=== PATIENT | male | born 1945 | race Caucasian/White ===

== ENCOUNTER → 2018-09-23 12:04 | Outpatient (CLI) | payer OTHER, SELFPAY ==
--- NOTE | 2018-09-23 | DI.US.S_ITS ---
PROCEDURE: US ABD AORTA ANEURYSM SCREEN INDICATIONS: AAA SCREEN TECHNIQUE: Real time scanning was performed of the aorta and iliac arteries, with image documentation. COMPARISON: None. FINDINGS: Aorta: Proximal aortic diameter measures 2.4 cm. Mid-aorta measures 1.8 cm. Distal aortic diameter is 1.9 cm. Iliac arteries: Right common iliac artery measures 1.0 cm. Left common iliac artery measures 1.1 cm. IMPRESSION: No evidence of abdominal aortic aneurysm. Dictated by: Julius Casanova M.D. on 09/23/2018 at 16:42 Approved by: Julius Casnaova M.D. on 09/23/2018 at 16:43
== END ==
PROVIDERS: PCP Family Medicine; Visit Provider Family Medicine
DX: Z13.6 Encounter for screening for cardiovascular disorders (principal)
CPT/HCPCS: 76706

== ENCOUNTER 2019-08-20 08:39 | Emergency (ER) | payer OTHER, SELFPAY ==
[2019-08-20 08:45] VITALS: BP 129/80; PULSE 78; RESP 14; TEMP 36.5; O2SAT 100; BMI 23.1
--- NOTE | 2019-08-20 09:01 | DI.RAD.S_ITS ---
PROCEDURE: XR CHEST 2V INDICATIONS: SOB TECHNIQUE: 2 views of the chest were acquired. COMPARISON: None. FINDINGS: Surgical changes and devices: None. Lungs and pleura: There is a 1.2 cm nodular density in the left lung base. No focal consolidation or pleural effusion. No pneumothorax. Mediastinum: Mediastinal contours are normal. Heart size is normal. Bones and chest wall: No suspicious bony abnormalities. Soft tissues appear unremarkable. IMPRESSION: 1. No acute cardiopulmonary disease. 2. A 1.2 cm nodular density in the left lower lobe. Recommend followup chest x-ray with nipple markers. If persists, a nonurgent chest CT is recommended for further evaluation. Dictated by: Michelle Ho M.D. on 08/20/2019 at 9:12 Approved by: Michelle Ho M.D. on 08/20/2019 at 9:16
[2019-08-20 09:10] VITALS: BP 122/67; PULSE 74; RESP 18; O2SAT 99
[2019-08-20 09:43] LABS: Add Manual Diff / Slide Review NO; Basophils Absolute Auto 100 /uL (0-100); Basophils Percent Auto 0.8 % (0-2); Eosinophils Absolute Auto 100 /uL (0-450); Eosinophils Percent Auto 1.4 % (2-4); Hematocrit 42.1 % (41-53); Hemoglobin 14.4 g/dL (13.5-17.5); Lymphocytes Absolute Auto 1400 /uL (1100-4500); Lymphocytes Percent Auto 14.8 % (25-40); Mean Corpuscular HGB Conc 34.1 % (30-36); Mean Corpuscular Hemoglobin 30.1 PG (26-34); Mean Corpuscular Volume 88.5 fL (80-100); Monocytes Absolute Auto 700 /uL (0-900); Monocytes Percent Auto 8.1 % (3-14); Neutrophils Absolute Auto 6900 /uL (1500-7000); Neutrophils Percent Auto 74.9 % (50-75); Platelet Count 246 X10^3/uL (150-400); Red Blood Cell Count 4.76 X10^6/uL (4.5-5.9); Red Cell Distribution Width 12.5 % (11.6-14.8); White Blood Cell Count 9.2 X10^3/uL (4.5-11.0)
[2019-08-20 09:49] LABS: D Dimer 301 ng/mL (<230)
[2019-08-20 09:53] LABS: BUN Creatinine Ratio 23.8 (6-22); Blood Urea Nitrogen 19 mg/dL (9-20); Calcium 9.3 mg/dL (8.4-10.2); Carbon Dioxide 26 mmol/L (22-32); Chloride 106 mmol/L (98-107); Creatine Kinase 440 U/L (55-170); Estimated Glomerular Filt Rate > 60.0 mL/min (>60); Glucose 101 mg/dL (80-110); HEMOLYSIS < 15 (0-50); Potassium 3.7 mmol/L (3.4-5.1); Sodium 140 mmol/L (137-145)
[2019-08-20 10:01] LABS: B Type Natriuretic Peptide < 100 (<100)
[2019-08-20 10:02] LABS: Lactate (Lactic Acid) 1.3 mmol/L (0.7-2.1)
[2019-08-20 10:05] LABS: Troponin I < 0.012 ng/mL (0.01-0.034)
[2019-08-20 10:07] LABS: CKMB % Relative Index 0.4 % (1.5-5.0); Creatine Kinase MB 1.76 ng/mL (<2.37)
[2019-08-20 10:15] LABS: Procalcitonin < 0.05 ng/mL (<0.5)
[2019-08-20 10:33] LABS: Ur Creatinine Normal (Normal); Ur Specific Gravity Normal (Normal); Urine pH Normal (Normal)
[2019-08-20 10:34] LABS: UR Morphine/Opiate cutoff 300 Negative (Negative); Urine Amphetamines Negative (Negative); Urine Barbiturates Negative (Negative); Urine Benzodiazepines Negative (Negative); Urine Cocaine Negative (Negative); Urine MDMA Negative (Negative); Urine Methadone Negative (Negative); Urine Methamphetamines Negative (Negative); Urine Oxycodone Negative (Negative); Urine Phencyclidine Negative (Negative); Urine Tetrahydrocannabinol Positive (Negative); Urine Tricyclic Antidepressant Negative (Negative)
[2019-08-20 10:40] VITALS: BP 119/68; PULSE 62; RESP 13; O2SAT 86
[2019-08-20 10:52] VITALS: O2SAT 98
[2019-08-20 11:01] VITALS: BP 115/63; PULSE 59; RESP 22; O2SAT 95
[2019-08-20 12:00] VITALS: BP 123/71; PULSE 61; RESP 16; O2SAT 98
[2019-08-20 12:29] LABS: Bacteria Urine None Seen; RBC Urine None Seen (0-5/HPF)
[2019-08-20 12:56] LABS: Culture Indicated Urine Specimen Cultured; Mucus Urine 1+ (Negative); Squamous Epithelial Cell Urine None Seen (0-5/HPF); WBC Urine 1-5/HPF (0-5/HPF)
--- NOTE | 2019-08-20 17:33 | ED_ITS ---
HPI - Anxiety General Chief Complaint: Anxiety Stated Complaint: withdrawls off and on having hot flashes cant eat Time Seen by Provider: 08/20/19 08:47 Source: patient and family Mode of arrival: Ambulatory Limitations: no limitations History of Present Illness HPI narrative: 74-year-old male nonsmoker presents with his significant other in the chief complaint of anxiety gradually increasing over the past few weeks. The patient has suffered from anxiety chronically, but relatively recently tapered off his medications over an 8 week period. Today he feels anxious and jittery and has been feeling a bit SOB for weeks to months. He missed his appointment with his PCP and came here. MD complaint: anxiety Onset (ago): week(s) Symptoms: palpitations and perioral numbness/tingling Severity: mild Quality: constant Place: home History of similar episodes: No Provoking factors: medication change Relieving factors: nothing Exacerbating factors: nothing Associated symptoms: shortness of breath and palpitations Related Data Allergies Allergy/AdvReac Type Severity Reaction Status Date / Time tetracycline Allergy Verified 08/20/19 08:57 Review of Systems Constitutional Constitutional: Denies chills, Denies fatigue, Denies fever(s), Denies frequent falls, Denies lethargy and Denies weakness Eyes Eyes: Denies change in vision, Denies eye discharge, Denies irritation and Denies loss of vision ENT Ears, Nose, Mouth, and Throat: Denies change in voice, Denies dizziness, Denies neck pain, Denies sore throat and Denies throat swelling Cardiovascular Cardiovascular: Denies chest pain, Denies irregular heart rhythm, Denies lightheadedness, Reports palpitations, Reports dyspnea, Denies dyspnea on exertion and Denies orthopnea Respiratory Respiratory: Denies cough, Reports dyspnea, Denies dyspnea on exertion and Denies wheezing Gastrointestinal Gastrointestinal: Denies abdominal pain, Denies change in bowel habits, Denies diarrhea, Denies nausea and Denies vomiting Genitourinary Genitourinary: Denies hematuria, Denies flank pain, Denies urinary incontinence and Denies urinary urgency Musculoskeletal Musculoskeletal: Denies back pain, Denies muscle weakness, Denies neck pain, Denies numbness and Denies tingling Integumentary/Breasts Skin/Breast: Denies pruritus, Denies erythema, Denies rash and Denies wounds Neurologic Neurologic: Denies behavioral changes, Denies confusion, Denies dizziness, Denies frequent falls, Denies loss of vision, Denies numbness, Denies tingling and Denies weakness Psychiatric Psychiatric: Reports anxiety, Denies behavioral changes, Denies confusion, Denies depression, Denies homicidal ideation and Denies suicidal ideation Endocrine Endocrine: Denies fatigue, Denies flushing and Reports palpitations Hematologic/Lymphatic Hematologic/Lymphatic: Denies easy bruising Allergic/Immunologic Allergic/Immunologic: Denies urticaria, Denies throat swelling and Denies wheezing Exam Narrative Exam Narrative: GENERAL: [74] year old patient appears stated age. Well- nourished, well-developed patient, in mild distress. HEAD: Atraumatic. Normocephalic. EYES: Pupils equal round and reactive. Extraocular motions intact. No scleral icterus. No injection or drainage. ENT: Nose without bleeding, purulent drainage. Throat without erythema, tonsillar hypertrophy or exudate. Airway patent. NECK: Trachea midline. Non tender CARDIOVASCULAR: Regular rate and rhythm without murmurs, gallops, or rubs. RESPIRATORY: Clear to auscultation. Breath sounds equal bilaterally. No wheezes, rales, or rhonchi. GASTROINTESTINAL: Abdomen soft, non-tender, nondistended. EXTREMITIES: No edema or joint tenderness. BACK: Nontender without deformity or crepitance. No flank tenderness. NEURO: AOx3. SKIN: No rash or erythema of visible areas Initial Vital Signs Initial Vital Signs: Vital Signs Temperature 97.7 F 08/20/19 08:45 Pulse Rate 78 08/20/19 08:45 Respiratory Rate 14 08/20/19 08:45 Blood Pressure 129/80 08/20/19 08:45 Pulse Oximetry 100 08/20/19 08:45 Course Orders Ordered: ED Orders 08/20/19 09:00 Consult to Respiratory Therapy Evaluate & Treat EKG-12 Lead Stat 08/20/19 09:01 XR chest 2V Stat 08/20/19 09:30 B Type Natriuretic Peptide Stat Basic Metabolic Panel Stat Complete Blood Count AUTO DIFF Stat D Dimer Stat Magnesium Stat Procalcitonin Stat Troponin & CK Cardiac Panel Stat 08/20/19 09:40 Lactate (Lactic Acid) Stat 08/20/19 10:10 Urine Culture Stat Urine Drug Screen, Rapid Stat Urine Microscopic Stat Consultations Consultation #1: call to PCP whom will follow as an outpatient Vital Signs Vital signs: Vital Signs - 8 hr 08/20/19 10:40 08/20/19 10:52 08/20/19 11:01 Pulse Rate 62 59 L Respiratory Rate 13 22 Blood Pressure [Right Arm] 119/68 115/63 Pulse Oximetry 86 L 98 95 08/20/19 12:00 Pulse Rate 61 Respiratory Rate 16 Blood Pressure [Right Arm] 123/71 Pulse Oximetry 98 MDM - Anxiety Lab Data Result diagrams: 08/20/19 09:30 08/20/19 09:30 Labs: Lab Results 08/20/19 08/20/19 08/20/19 Range/Units 09:30 09:30 09:30 WBC 9.2 (4.5-11.0) X10^3/uL RBC 4.76 (4.5-5.9) X10^6/uL Hgb 14.4 (13.5-17.5) g/dL Hct 42.1 (41-53) % MCV 88.5 (80-100) fL MCH 30.1 (26-34) PG MCHC 34.1 (30-36) % RDW 12.5 (11.6-14.8) % Plt Count 246 (150-400) X10^3/uL Neut % (Auto) 74.9 (50-75) % Lymph % (Auto) 14.8 L (25-40) % [place] % (Auto) 8.1 (3-14) % Eos % (Auto) 1.4 L (2-4) % Baso % (Auto) 0.8 (0-2) % Neut # (Auto) 6900 (8896-5793) /uL Lymph # (Auto) 1400 (3543-5696) /uL [place] # (Auto) 700 (0-900) /uL Eos # (Auto) 100 (0-450) /uL Baso # (Auto) 100 (0-100) /uL D-Dimer 301 H (<230) ng/mL Sodium 140 (137-145) mmol/L Potassium 3.7 (3.4-5.1) mmol/L Chloride 106 (98-107) mmol/L Carbon Dioxide 26 (22-32) mmol/L BUN 19 (9-20) mg/dL Creatinine 0.80 (0.66-1.25) mg/dL Estimated GFR > 60.0 (>60) mL/min BUN/Creatinine Ratio 23.8 H (6-22) Glucose 101 (80-110) mg/dL Lactate (0.7-2.1) mmol/L Calcium 9.3 (8.4-10.2) mg/dL Magnesium 2.0 (1.6-2.3) mg/dL Total Creatine Kinase 440 H (55-170) U/L CK-MB (CK-2) 1.76 (<2.37) ng/mL CK-MB (CK-2) Rel Index 0.4 L (1.5-5.0) % Troponin I < 0.012 (0.01-0.034) ng/mL B-Natriuretic Peptide < 100 (<100) Procalcitonin (<0.5) ng/mL Urine RBC (0-5/HPF) Urine WBC (0-5/HPF) Ur Squamous Epith Cells (0-5/HPF) Urine Bacteria (None) Urine Mucus (Negative) Ur Culture Indicated? U Morph 300 ng/mL cutoff (Negative) Ur Oxycodone Screen (Negative) Urine Methadone Screen (Negative) Ur Barbiturates Screen (Negative) U Tricyclic Antidepress (Negative) Ur Phencyclidine Scrn (Negative) Ur Amphetamines Screen (Negative) U Methamphetamines Scrn (Negative) Ur MDMA Scrn (Ecstasy) (Negative) U Benzodiazepines Scrn (Negative) Urine Cocaine Screen (Negative) U Marijuana (THC) Screen (Negative) 08/20/19 08/20/19 08/20/19 Range/Units 09:30 09:40 10:10 WBC (4.5-11.0) X10^3/uL RBC (4.5-5.9) X10^6/uL Hgb (13.5-17.5) g/dL Hct (41-53) % MCV (80-100) fL MCH (26-34) PG MCHC (30-36) % RDW (11.6-14.8) % Plt Count (150-400) X10^3/uL Neut % (Auto) (50-75) % Lymph % (Auto) (25-40) % [place] % (Auto) (3-14) % Eos % (Auto) (2-4) % Baso % (Auto) (0-2) % Neut # (Auto) (2240-8704) /uL Lymph # (Auto) (1751-7087) /uL [place] # (Auto) (0-900) /uL Eos # (Auto) (0-450) /uL Baso # (Auto) (0-100) /uL D-Dimer (<230) ng/mL Sodium (137-145) mmol/L Potassium (3.4-5.1) mmol/L Chloride (98-107) mmol/L Carbon Dioxide (22-32) mmol/L BUN (9-20) mg/dL Creatinine (0.66-1.25) mg/dL Estimated GFR (>60) mL/min BUN/Creatinine Ratio (6-22) Glucose (80-110) mg/dL Lactate 1.3 (0.7-2.1) mmol/L Calcium (8.4-10.2) mg/dL Magnesium (1.6-2.3) mg/dL Total Creatine Kinase (55-170) U/L CK-MB (CK-2) (<2.37) ng/mL CK-MB (CK-2) Rel Index (1.5-5.0) % Troponin I (0.01-0.034) ng/mL B-Natriuretic Peptide (<100) Procalcitonin < 0.05 (<0.5) ng/mL Urine RBC (0-5/HPF) Urine WBC (0-5/HPF) Ur Squamous Epith Cells (0-5/HPF) Urine Bacteria (None) Urine Mucus (Negative) Ur Culture Indicated? U Morph 300 ng/mL cutoff Negative (Negative) Ur Oxycodone Screen Negative (Negative) Urine Methadone Screen Negative (Negative) Ur Barbiturates Screen Negative (Negative) U Tricyclic Antidepress Negative (Negative) Ur Phencyclidine Scrn Negative (Negative) Ur Amphetamines Screen Negative (Negative) U Methamphetamines Scrn Negative (Negative) Ur MDMA Scrn (Ecstasy) Negative (Negative) U Benzodiazepines Scrn Negative (Negative) Urine Cocaine Screen Negative (Negative) U Marijuana (THC) Screen Positive H (Negative) 08/20/19 Range/Units 10:10 WBC (4.5-11.0) X10^3/uL RBC (4.5-5.9) X10^6/uL Hgb (13.5-17.5) g/dL Hct (41-53) % MCV (80-100) fL MCH (26-34) PG MCHC (30-36) % RDW (11.6-14.8) % Plt Count (150-400) X10^3/uL Neut % (Auto) (50-75) % Lymph % (Auto) (25-40) % [place] % (Auto) (3-14) % Eos % (Auto) (2-4) % Baso % (Auto) (0-2) % Neut # (Auto) (6789-7694) /uL Lymph # (Auto) (3799-5917) /uL [place] # (Auto) (0-900) /uL Eos # (Auto) (0-450) /uL Baso # (Auto) (0-100) /uL D-Dimer (<230) ng/mL Sodium (137-145) mmol/L Potassium (3.4-5.1) mmol/L Chloride (98-107) mmol/L Carbon Dioxide (22-32) mmol/L BUN (9-20) mg/dL Creatinine (0.66-1.25) mg/dL Estimated GFR (>60) mL/min BUN/Creatinine Ratio (6-22) Glucose (80-110) mg/dL Lactate (0.7-2.1) mmol/L Calcium (8.4-10.2) mg/dL Magnesium (1.6-2.3) mg/dL Total Creatine Kinase (55-170) U/L CK-MB (CK-2) (<2.37) ng/mL CK-MB (CK-2) Rel Index (1.5-5.0) % Troponin I (0.01-0.034) ng/mL B-Natriuretic Peptide (<100) Procalcitonin (<0.5) ng/mL Urine RBC None seen (0-5/HPF) Urine WBC 1-5/hpf (0-5/HPF) Ur Squamous Epith Cells None seen (0-5/HPF) Urine Bacteria None seen (None) Urine Mucus 1+ H (Negative) Ur Culture Indicated? Specimen cultured U Morph 300 ng/mL cutoff (Negative) Ur Oxycodone Screen (Negative) Urine Methadone Screen (Negative) Ur Barbiturates Screen (Negative) U Tricyclic Antidepress (Negative) Ur Phencyclidine Scrn (Negative) Ur Amphetamines Screen (Negative) U Methamphetamines Scrn (Negative) Ur MDMA Scrn (Ecstasy) (Negative) U Benzodiazepines Scrn (Negative) Urine Cocaine Screen (Negative) U Marijuana (THC) Screen (Negative) Urine Dip Bedside Urine Glucose Negative Bedside Urine Bilirubin + 1 Bedside Urine Ketone ++ 40 Urine Specific [place] 1.015 Bedside Urine Occult Blood - Negative Bedside Urine pH 7.5 Bedside Urine Protein +/- 15 Bedside Urine Urobilinogen +/- 1mg Bedside Urine Nitrite - Negative Bedside Urine Leukocytes +/- 15 Esterase Discharge Plan Departure Patient Disposition: Home Clinical Impression: Acute anxiety Discharge Date/Time: 08/20/19 12:16 Instructions: Anxiety Disorders Activity Restrictions/Additional Instructions: *You have been diagnosed with [anxiety, unlikely withdrawals from benzodiazepines] *What to do: *Take medications as directed *Follow up with your primary care provider in 2-3 days, call for an appointment. Let them know you were seen in the Emergency Department and that we ask that you be seen in follow up *Return to ER if you should have any new, worsening or concerning symptoms Referrals: Pebbles Foy MD [Physician] -
== END 2019-08-20 12:16 | disposition home or self-care (01) ==
PROVIDERS: Emergency Provider Emergency Medicine
DX: F41.9 Anxiety disorder, unspecified (principal)
CPT/HCPCS: 36415; 71046; 80048; 80305; 81003; 81015; 82550; 82553; 83605; 83735; 83880; 84145; 84484; 85025; 85379; 87086; 93005; 99283; 99285

== ENCOUNTER → 2019-08-23 09:25 | Outpatient (CLI) | payer OTHER, SELFPAY ==
--- NOTE | 2019-08-23 | DI.RAD.S_ITS ---
PROCEDURE: XR CHEST 2V INDICATIONS: LUNG NODULE TECHNIQUE: 2 views of the chest were acquired. COMPARISON: [facility], CR, XR CHEST 2V, 08/20/2019, 9:00. FINDINGS: Surgical changes and devices: None. Lungs and pleura: The nodular density persists and projects just inferior to the nipple marker. No pleural effusions or pneumothorax. Mediastinum: Mediastinal contours are normal. Heart size is normal. Bones and chest wall: No suspicious bony abnormalities. Soft tissues appear unremarkable. IMPRESSION: 1. No acute cardiopulmonary disease. 2. The nodular density in the left lower lung zone persists and projects just inferior to the nipple marker. Cannot rule out a pulmonary nodule. Chest CT is recommended for followup. Dictated by: Michelle Ho M.D. on 08/23/2019 at 11:01 Approved by: Michelle Ho M.D. on 08/23/2019 at 11:04
== END ==
PROVIDERS: PCP Student in an Organized Health Care Education/Training Program; Visit Provider Student in an Organized Health Care Education/Training Program
DX: R91.1 Solitary pulmonary nodule (principal)
CPT/HCPCS: 71046

== ENCOUNTER → 2019-08-23 15:48 | Outpatient (CLI) | payer OTHER, SELFPAY ==
--- NOTE | 2019-08-23 | DI.CT.S_ITS ---
PROCEDURE: CT ANGIO CHEST PE PROTOCOL INDICATIONS: Shortness of breath, Elevated D-dimer TECHNIQUE: After the administration of intravenous contrast, 2 mm thick sections acquired from the pulmonary apices to the posterior costophrenic angles. 3-dimensional maximum intensity projection (MIP) coronal and sagittal reformats were then acquired through the thorax. For radiation dose reduction, the following was used: automated exposure control, adjustment of mA and/or kV according to patient size. COMPARISON: [facility], CR, XR CHEST 2V, 08/23/2019, 9:26. FINDINGS: Image quality: Excellent. Pulmonary arteries: Pulmonary arteries are normal in size, and demonstrate no intraluminal filling defects to suggest central pulmonary embolism. Lungs and pleura: There is a 1 cm nodule in the right middle lobe (series 5 image 233). The nodular density in the left lower lung zone seen on the chest x-ray is not visualized, probably caused by an artifact such as an rib end. No pleural effusions or pneumothorax. Central and peripheral airways are patent. Mediastinum: Heart size is normal, without pericardial effusion. No mediastinal or hilar adenopathy. Thoracic aorta is normal in caliber and enhancement. Esophagus is normal in caliber. Tiny hiatal hernia. Bones and chest wall: No suspicious bony lesions. Ribs and thoracic spine appear intact throughout. Thyroid gland is normal. No axillary or supraclavicular adenopathy. Abdomen: Visualized upper abdominal solid organs appear normal in the early arterial phase of enhancement. IMPRESSION: 1. No evidence for pulmonary embolism. 2. A 1 cm nodule in the right middle lobe. Recommend a followup CT in 3 months. Alternatively, PET CT may be considered for further evaluation. 3. No lung mass in the left lower lung zone correlate with radiographic abnormality. Fleischner Society criteria for SOLID lung nodule followup. Nodule size (mm)Low-risk patientHigh-risk patient?4No follow-up neededFollow-up at 12 mo; if no change, no further follow-up>7-8Akcitc-ds CT at 12 mo; if no change, no further follow-up needed.Initial follow-up CT at 6-12 mo, then 18-24 mo if no change. >6-8Initial follow-up CT at 6-12 mo, then 18-24 mo if no change. Initial follow-up CT at 3-6 mo, then 9-12 mo and 24 mo if no change. >8Follow-up CT at 3, 9, 24 mo. Or PET and/or biopsy.Same as for low-risk pts. Fleischner Society criteria for SUB-SOLID lung nodule followup. Solitary pure ground-glass nodules5 mm or lessNo followup needed. >5 mm3 mo follow-up CT to confirm persistence. Then annual CT for 3 years. Part-solid nodules3 mo follow-up CT to confirm persistence. If persistent with solid component <5 mm, annual CT for at least 3 years. If solid component is 5 mm or more, biopsy or surgical resection. Consider PET-CT for lesions > 10 mm. Multiple sub-solid nodulesPure ground glass nodules [address] at 2 and 4 years. Pure ground glass nodules >5 mm without dominant lesion. [address] to confirm persistence, then annual followup CT for at least 3 years. Dominant nodule(s) with part-solid or solid component. [address] to confirm persistence. If persistent, consider biopsy or surgical resection, saroj if lesions have >5 mm solid component. Dictated by: Michelle Ho M.D. on 08/23/2019 at 16:42 Approved by: Michelle Ho M.D. on 08/23/2019 at 16:51
== END ==
PROVIDERS: PCP Student in an Organized Health Care Education/Training Program; Visit Provider Student in an Organized Health Care Education/Training Program
DX: R91.1 Solitary pulmonary nodule (principal); R06.02 Shortness of breath; R79.1 Abnormal coagulation profile
CPT/HCPCS: 71046; 71275; Q9967

== ENCOUNTER → 2020-04-03 15:43 | Outpatient (CLI) | payer OTHER, SELFPAY ==
[2020-04-03 17:43] LABS: Add Manual Diff / Slide Review NO; Basophils Absolute Auto 0 /uL (0-100); Basophils Percent Auto 0.4 % (0-2); Eosinophils Absolute Auto 500 /uL (0-450); Eosinophils Percent Auto 6.5 % (2-4); Hematocrit 39.6 % (41-53); Hemoglobin 13.7 g/dL (13.5-17.5); Lymphocytes Absolute Auto 1300 /uL (1100-4500); Lymphocytes Percent Auto 18.3 % (25-40); Mean Corpuscular HGB Conc 34.6 % (30-36); Mean Corpuscular Hemoglobin 30.5 PG (26-34); Mean Corpuscular Volume 88.1 fL (80-100); Monocytes Absolute Auto 500 /uL (0-900); Monocytes Percent Auto 7.3 % (3-14); Neutrophils Absolute Auto 4800 /uL (1500-7000); Neutrophils Percent Auto 67.5 % (50-75); Platelet Count 197 X10^3/uL (150-400); Red Cell Distribution Width 12.7 % (11.6-14.8); White Blood Cell Count 7.1 X10^3/uL (4.5-11.0)
== END ==
PROVIDERS: PCP Student in an Organized Health Care Education/Training Program; Referring Provider Family Medicine; Visit Provider Family Medicine
DX: H92.09 Otalgia, unspecified ear (principal)
CPT/HCPCS: 36415; 85025

== ENCOUNTER → 2021-07-17 13:30 | Outpatient (CLI) | payer OTHER, SELFPAY ==
--- NOTE | 2021-07-17 | DI.RAD.S_ITS ---
PROCEDURE: XR CHEST 2V INDICATIONS: Cough TECHNIQUE: 2 views of the chest were acquired. COMPARISON: [facility], CR, XR CHEST 2V, 08/23/2019, 9:26. FINDINGS: Surgical changes and devices: None. Lungs and pleura: Lungs are clear. No pleural effusions or pneumothorax. Mediastinum: Mediastinal contours are normal. Heart size is normal. Bones and chest wall: No suspicious bony abnormalities. Soft tissues appear unremarkable. IMPRESSION: No acute cardiopulmonary process demonstrated radiographically. Dictated by: Al Monroe M.D. on 07/17/2021 at 14:28 Approved by: Al Monroe M.D. on 07/17/2021 at 14:29
== END ==
PROVIDERS: PCP Student in an Organized Health Care Education/Training Program; Referring Provider Student in an Organized Health Care Education/Training Program; Visit Provider Student in an Organized Health Care Education/Training Program
DX: R06.02 Shortness of breath (principal); R05.9 Cough, unspecified
CPT/HCPCS: 71046

== ENCOUNTER → 2021-07-18 14:46 | Outpatient (ROUT) | payer OTHER, SELFPAY ==
[2021-07-18 15:07] LABS: D Dimer 273 ng/mL (<230)
== END ==
PROVIDERS: PCP Student in an Organized Health Care Education/Training Program; Visit Provider Student in an Organized Health Care Education/Training Program
DX: R91.8 Other nonspecific abnormal finding of lung field (principal)
CPT/HCPCS: 85379

== ENCOUNTER → 2021-07-23 13:02 | Outpatient (CLI) | payer OTHER, SELFPAY ==
--- NOTE | 2021-07-23 | DI.CT.S_ITS ---
PROCEDURE: CT ANGIO CHEST PE PROTOCOL INDICATIONS: Other specified abnormal findings of blood chemist enzymes TECHNIQUE: After the administration of intravenous contrast, 2 mm thick sections acquired from the pulmonary apices to the posterior costophrenic angles. 3-dimensional maximum intensity projection (MIP) coronal and sagittal reformats were then acquired through the thorax. For radiation dose reduction, the following was used: automated exposure control, adjustment of mA and/or kV according to patient size. COMPARISON: [facility], CT, CT ANGIO CHEST PE PROTOCOL, 08/23/2019, 16:06. FINDINGS: Image quality: Excellent. Pulmonary arteries: Pulmonary arteries are normal in size, and demonstrate no intraluminal filling defects to suggest central pulmonary embolism. Lungs and pleura: 10 x 8 mm solid nodule is again seen in anterior aspect of right middle lobe unchanged in size and appearance from previous study series 5, image 191. Scattered atelectasis in posterior and lateral periphery of bilateral lower lung alfaro are seen. No new pulmonary nodule or mass is noted. No pleural effusions or pneumothorax. Central and peripheral airways are patent. Mediastinum: Heart size is normal, without pericardial effusion. No mediastinal or hilar adenopathy. Ascending thoracic aortic aneurysm is seen measures up to 4.6 cm in largest AP diameter. No aortic dissection. Esophagus is normal in caliber, with a small hiatal hernia. Bones and chest wall: No suspicious bony lesions. Ribs and thoracic spine appear intact throughout. Thyroid gland is within normal limits. No axillary or supraclavicular adenopathy. Abdomen: Visualized upper abdominal solid organs appear normal in the early arterial phase of enhancement. IMPRESSION: 1. No evidence of pulmonary emboli. 2. Ascending thoracic aortic aneurysm and measures up to 4.2 cm in largest AP diameter. No aortic dissection. 3. Stable 10 x 8 mm solid nodule in anterior right middle lobe likely represent benign process. Scattered atelectasis in periphery of bilateral lower lung alfaro. No new pulmonary nodule. No pleural effusion or pneumothorax. Dictated by: Julius Casanova M.D. on 07/23/2021 at 13:48 Approved by: Julius Casanova M.D. on 07/23/2021 at 13:52
== END ==
PROVIDERS: PCP Student in an Organized Health Care Education/Training Program; Referring Provider Student in an Organized Health Care Education/Training Program; Visit Provider Student in an Organized Health Care Education/Training Program
DX: R05.3 Chronic cough (principal); R79.89 Other specified abnormal findings of blood chemistry
CPT/HCPCS: 71275; Q9967

== ENCOUNTER → 2021-07-26 16:12 | Outpatient (ROUT) | payer OTHER, SELFPAY ==
[2021-07-26 16:34] LABS: D Dimer 272 ng/mL (<230)
== END ==
PROVIDERS: PCP Student in an Organized Health Care Education/Training Program; Visit Provider Student in an Organized Health Care Education/Training Program
DX: R79.89 Other specified abnormal findings of blood chemistry (principal)
CPT/HCPCS: 85379

== ENCOUNTER → 2021-12-06 11:10 | Outpatient (ROUT) | payer OTHER, SELFPAY ==
[2021-12-06 11:29] LABS: D Dimer 260 ng/mL (<230)
== END ==
PROVIDERS: PCP Student in an Organized Health Care Education/Training Program; Visit Provider Student in an Organized Health Care Education/Training Program
DX: R79.89 Other specified abnormal findings of blood chemistry (principal)
CPT/HCPCS: 85379

== ENCOUNTER → 2022-03-12 11:22 | Outpatient (CLI) | payer OTHER, SELFPAY ==
[2022-03-12 12:36] LABS: Hemoglobin A1C% w Est Avg Glu 5.7 % (4.0-6.0)
[2022-03-12 12:43] LABS: D Dimer 204 ng/mL (<230)
[2022-03-12 12:51] LABS: Cholesterol 173 mg/dL (140-199); HDL Cholesterol 34 mg/dL (40-60); LDL Cholesterol Calculated 113 mg/dL (<100); Triglycerides 131 mg/dL (35-150)
== END ==
PROVIDERS: PCP Student in an Organized Health Care Education/Training Program; Referring Provider Student in an Organized Health Care Education/Training Program; Visit Provider Student in an Organized Health Care Education/Training Program
DX: R79.89 Other specified abnormal findings of blood chemistry (principal); E78.5 Hyperlipidemia, unspecified; E88.81 Metabolic syndrome and other insulin resistance; I10 Essential (primary) hypertension
CPT/HCPCS: 36415; 80061; 83036; 85379

== ENCOUNTER → 2022-06-26 13:42 | Outpatient (CLI) | payer OTHER, SELFPAY ==
--- NOTE | 2022-07-22 10:15 | P.HOLT.S_ITS ---
Quality Assurance Specialist Report Referral & Results Date Patient Seen: 06/26/22 Requesting provider: Pamela Groves Duration of monitoring (days): 14 Diary information: There was 1 patient triggered event and 1 patient diary entry. These events were associated sinus rhythm and PACs Data: Minimum heart rate identified was 41 beats per minute at 06:47 on 07/02/2022 Maximum sinus heart rate was 140 beats per minute at 16:29 on 06/27/2022 Maximum overall heart rate was 200 beats per minute at 12:33 on 06/28/2022 during a run of SVT Less than 1% of identified beats were ventricular or supraventricular ectopic in origin, which would classify them as rare. There were 93 runs of SVT the fastest being a 9.1 second run at the above rate of 200 beats per minute, the longest lasting 19 beats at an average rate of 121 beats per minute which suggest the possibility of more atrial tachycardia rather than true SVT at times There were no pauses of 3 seconds or longer or episodes of atrial fibrillation identified on this study Impression: 14 day laboratory monitor demonstrating very rare very brief runs of SVT as above No other significant dysrhythmias identified Clinical correlation suggested
== END ==
PROVIDERS: PCP Family Medicine; Referring Provider Internal Medicine; Visit Provider Internal Medicine
DX: Z86.79 Personal history of other diseases of the circulatory system (principal)
CPT/HCPCS: 93246; 93248